=== PATIENT | male | born 1980 ===

== ENCOUNTER 2018-11-20 02:42 | Emergency (ER) | payer OTHER ==
[~2018-11-20] VITALS: Ht 170.2 cm; Wt 86.2 kg
[2018-11-20] MEDS ORDERED: KETO10TA2 PO (03:57)
[2018-11-20] MEDS ORDERED: ORPHENADRINE C100 MG PO (03:57)
== END 2018-11-20 04:22 | disposition home or self-care (01) ==
LOC: ER 02:42
DX: S93.402A Sprain of unspecified ligament of left ankle, initial encounter (principal); X50.3XXA Overexertion from repetitive movements, initial encounter; Y93.89 Activity, other specified; Y92.89 Other specified places as the place of occurrence of the external cause; Y99.8 Other external cause status

== ENCOUNTER 2023-01-14 20:22 | Emergency (ER) | payer OTHER ==
[~2023-01-14] VITALS: Ht 172.7 cm; Wt 108.9 kg
[~2023-01-14 20:22] MED LIST: KETO10TA2 PO; ORPHENADRINE C100 MG PO
[2023-01-15] MEDS ORDERED: PHENAGIL CH TA1 EACH PO (03:44)
[2023-01-15] MEDS ORDERED: ZYNCOF 20-400120 ML PO (03:44)
[2023-01-15] MEDS ORDERED: DOLOGESIC 500-1 EACH PO (03:44)
== END 2023-01-15 03:52 ==
LOC: ER 20:22
DX: J10.1 Influenza due to other identified influenza virus with other respiratory manifestations (principal); Z20.822 Contact with and (suspected) exposure to COVID-19